=== PATIENT | female | born 1940 | race Caucasian/White ===

== ENCOUNTER 2025-05-14 19:02 | Inpatient (IN) | payer MEDICARE, BC ==
[~2025-05-14] VITALS: Ht 167.6 cm; Wt 70.8 kg
[2025-05-14 20:00] VITALS: BP 124/80; TEMP 98.4; O2SAT 96
[2025-05-14] MEDS ORDERED: Z GUARD REMEDY 4 OZ OINT TP PRN (21:00)
[2025-05-14] MEDS ORDERED: MAG HYDROX/AL HYDROX/SIMETH 30 ML UDC PO PRN (21:00)
[2025-05-14] MEDS ORDERED: ONDANSETRON HCL/PF 4 MG/2 ML VIAL IVP PRN (21:00)
[2025-05-14] MEDS ORDERED: ACETAMINOPHEN 325 MG TABLET PO PRN (21:00)
[2025-05-14] MEDS ORDERED: ZOLPIDEM TARTRATE 5 MG TABLET PO PRN (21:00)
[2025-05-14] MEDS: IV D5/0.45 NACL 1,000 ML IV PRN (22:19)
[2025-05-15] VITALS (33 sets, daily range): BP systolic 85–125; BP diastolic 52–95; TEMP 95.9–98; O2SAT 97–100
[2025-05-15 07:01] LABS: INR 1.03 (0.91-1.10)
[2025-05-15] MEDS ORDERED: HEMOSTATIC MATRIX 8 ML 1 EACH PAD MC ONE (07:02)
[2025-05-15] MEDS ORDERED: CEFAZOLIN 1 GM ONE (07:02)
[2025-05-15] MEDS ORDERED: ANESTHESIA TRAY IN PYXIS 1 EA TRAY MC ONE (07:02)
[2025-05-15] MEDS ORDERED: LIDOCAINE 0.5%-EPI 1:200,000 50 ML VIAL ONE (07:02)
[2025-05-15 07:03] LABS: PLATELET COUNT (AUTO) 355 K/uL (150-450); RED BLOOD CELL COUNT(AUTO) 3.49 MIL/uL (4.0-5.2); RED CELL DISTRIBUTION WIDTH 14.2 % (11.5-15.0); WHITE BLOOD COUNT (AUTO) 6.7 K/uL (4.3-11.0)
[2025-05-15] MEDS ORDERED: ROCURONIUM BROMIDE 50 MG/5 ML ONE (07:07)
[2025-05-15] MEDS ORDERED: FENTANYL PF 250MCG/5ML AMPUL ONE (07:07)
[2025-05-15 07:09] LABS: CALCIUM, SERUM 6.7 mg/dL (8.5-10.1); CREATININE 0.6 mg/dL (0.6-1.3); PHOSPHORUS 1.5 mg/dL (2.5-4.9); SODIUM SERUM 139.0 mmol/L (136-145); UREA NITROGEN, BLOOD 7.0 mg/dL (7-18)
[2025-05-15 07:25] LABS: APPEARANCE,URINE CLEAR (CLEAR); BLOOD, URINE TRACE-INTA Ery/uL (NEGATIVE); LEUKOCYTE ESTERASE ,URINE NEGATIVE (NEGATIVE); NITRITE, URINE NEGATIVE (NEGATIVE); UGLUCOSE NEGATIVE (NEGATIVE)
[2025-05-15] MEDS: POTASSIUM CL. PREMIX PERIPHER. 50 ML IV SCH (07:30)
[2025-05-15 07:43] LABS: ADD URINE CULTURE NO; SQUAMOUS EPITHELIAL CELL,UR 0-2 /HPF (None Seen)
[2025-05-15] MEDS: PANTOPRAZOLE 40 MG VIAL IV SCH (09:00)
[2025-05-15] MEDS ORDERED: KETOROLAC TROMETHAMINE INJ 60 MG/2 ML VIAL IM ONE (09:36)
[2025-05-15] MEDS ORDERED: TRIAMCINOLONE ACETONIDE SUSP 40 MG/ML 1 ML ONE (09:37)
[2025-05-15] MEDS ORDERED: FENTANYL PF 100MCG/2ML AMPUL ONE (10:22)
[2025-05-15] MEDS: FENTANYL PF 100MCG/2ML AMPUL IV PRN (10:24)
[2025-05-15 11:17] LABS: ABG BASE EXCESS -10.2 mmol/L (-2.0-3.0); ABG OXYGEN SATURATION 91.7 % (94.0-98.0); ABG PCO2 139.3 mmHg (32.0-45.0); ABG PH 6.892 (7.350-7.450); ABG PO2 93.9 mmHg (83.0-108.0); ABG TOTAL HEMOGLOBIN 13.9 G/dL (12.0-16.0); FLOW, BLOOD GAS 10.00 L/min (0.00-30.00); FRACTIONATED INSPIRED OXYGEN 60.0 %; SITE, ABG LEFT RADIAL
[2025-05-15] MEDS: Magnesium 1GM/D5W 100ML PREMIX 100 ML IV SCH (12:06)
[2025-05-15] MEDS: PROPOFOL 100 ML IV PRN (12:13)
[2025-05-15] MEDS ORDERED: ATOR20TA PO (13:55)
[2025-05-15] MEDS ORDERED: AMLO-213 PO (13:55)
[2025-05-15] MEDS ORDERED: ESCI10TA PO (13:55)
[2025-05-15] MEDS ORDERED: LEVO75TA7 PO (13:55)
[2025-05-15 17:20] LABS: CALCIUM, SERUM 6.9 mg/dL (8.5-10.1); CREATININE 0.7 mg/dL (0.6-1.3); SODIUM SERUM 136.0 mmol/L (136-145); UREA NITROGEN, BLOOD 8.0 mg/dL (7-18)
[2025-05-16] VITALS (26 sets, daily range): BP systolic 96–117; BP diastolic 55–77; TEMP 97.5–98.4; O2SAT 93–100
[2025-05-16] MEDS: MORPHINE SULFATE INJ 4 MG/ML DISP.SYRIN IV PRN (01:27)
[2025-05-16 05:22] LABS: CALCIUM, SERUM 6.5 mg/dL (8.5-10.1); CREATININE 0.8 mg/dL (0.6-1.3); PHOSPHORUS 1.9 mg/dL (2.5-4.9); SODIUM SERUM 135.0 mmol/L (136-145); UREA NITROGEN, BLOOD 8.0 mg/dL (7-18)
[2025-05-16] MEDS: HYDROCODONE/APAP 5/325MG TABLET PO PRN (14:40)
[2025-05-16] MEDS: NEUTRA PHOS 1 POWD.PACKET PO ONE (16:44)
[2025-05-16] MEDS: ATORVASTATIN 10 MG TABLET PO SCH (21:02)
[2025-05-17] VITALS: BP 119/62; TEMP 97.9; O2SAT 98
[2025-05-17 04:00] VITALS: BP 113/55; TEMP 98.1; O2SAT 96
[2025-05-17 07:16] LABS: PLATELET COUNT (AUTO) 354 K/uL (150-450); RED BLOOD CELL COUNT(AUTO) 3.43 MIL/uL (4.0-5.2); RED CELL DISTRIBUTION WIDTH 14.5 % (11.5-15.0); WHITE BLOOD COUNT (AUTO) 8.6 K/uL (4.3-11.0)
[2025-05-17 08:00] VITALS: BP 126/62; TEMP 97.5; O2SAT 99
[2025-05-17 08:16] LABS: CALCIUM, SERUM 6.9 mg/dL (8.5-10.1); CREATININE 0.6 mg/dL (0.6-1.3); PHOSPHORUS 1.8 mg/dL (2.5-4.9); SODIUM SERUM 138.0 mmol/L (136-145); UREA NITROGEN, BLOOD 7.0 mg/dL (7-18)
[2025-05-17] MEDS: LEVOTHYROXINE SODIUM 75 MCG TABLET PO SCH (08:26)
[2025-05-17] MEDS: AMLODIPINE BESYLATE 10 MG TABLET PO SCH (08:26)
[2025-05-17] MEDS: ESCITALOPRAM OXALATE (10 MG) 10 MG TABLET PO SCH (08:26)
[2025-05-17 12:00] VITALS: BP 102/52; TEMP 97.9; O2SAT 96; O2SAT 98
[2025-05-17 16:00] VITALS: BP 113/59; TEMP 97.9; O2SAT 94
[2025-05-17] MEDS: K PHOS NEUTRAL 250 MG TABLET PO ONE (16:07)
[2025-05-17] MEDS: DOCUSATE SODIUM 100 MG CAPSULE PO SCH (16:07)
[2025-05-17] MEDS: MAGNESIUM HYDROXIDE 30 ML UDC PO PRN (16:07)
[2025-05-17] MEDS: ENSURE ENLIVE CHOC 237 ML CAN PO SCH (18:00)
[2025-05-17 20:00] VITALS: BP 118/58; TEMP 97.7; O2SAT 99
[2025-05-18] VITALS: BP 111/67; TEMP 97.2; O2SAT 99
[2025-05-18 04:00] VITALS: BP 126/60; TEMP 97.5; O2SAT 99
[2025-05-18 07:29] LABS: CALCIUM, SERUM 6.7 mg/dL (8.5-10.1); CREATININE 0.6 mg/dL (0.6-1.3); SODIUM SERUM 137.0 mmol/L (136-145); UREA NITROGEN, BLOOD 6.0 mg/dL (7-18)
[2025-05-18 08:00] VITALS: BP 134/59; TEMP 97.9; O2SAT 99
[2025-05-18] MEDS: PANTOPRAZOLE 40 MG/PACK PACK PO SCH (08:55)
[2025-05-18] MEDS: MAGNESIUM OXIDE 400 MG TABLET PO ONE (09:44)
[2025-05-18] MEDS: POTASSIUM CHLORIDE 20 MEQ POWDER PACKET PO ONE (09:48)
[2025-05-18] MEDS: MINERAL OIL 133 ML (PYXIS) 1 EA ENEMA RC ONE (11:28)
[2025-05-18 12:00] VITALS: BP 123/96; TEMP 97.8; O2SAT 100
[2025-05-18 16:00] VITALS: BP 116/68; TEMP 98.4; O2SAT 98
== END 2025-05-18 17:24 | DRG 518 ==
LOC: MED 20:40 → ICU 05-15 11:19 → TELE1 05-16 10:39
PROVIDERS: ADMIT Student in an Organized Health Care Education/Training Program
PROC: 01NB0ZZ Release Lumbar Nerve, Open Approach (ICD-10-PCS; 2025-05-15)
PROC: 0BH18EZ Insertion of Endotracheal Airway into Trachea, Via Natural or Artificial Opening Endoscopic (ICD-10-PCS; 2025-05-15)
PROC: 5A1935Z Respiratory Ventilation, Less than 24 Consecutive Hours (ICD-10-PCS; 2025-05-15)
PROC: 00NY0ZZ Release Lumbar Spinal Cord, Open Approach (ICD-10-PCS; principal; 2025-05-15 07:30)
DX: M48.061 Spinal stenosis, lumbar region without neurogenic claudication (principal); J96.01 Acute respiratory failure with hypoxia; J96.02 Acute respiratory failure with hypercapnia; G95.29 Other cord compression; E46 Unspecified protein-calorie malnutrition; G83.4 Cauda equina syndrome; N39.0 Urinary tract infection, site not specified; E87.29 Other acidosis; E88.09 Other disorders of plasma-protein metabolism, not elsewhere classified; R53.1 Weakness; E03.9 Hypothyroidism, unspecified; E21.3 Hyperparathyroidism, unspecified; E78.5 Hyperlipidemia, unspecified; E83.42 Hypomagnesemia; K59.09 Other constipation; Z87.440 Personal history of urinary (tract) infections; E87.6 Hypokalemia; E83.39 Other disorders of phosphorus metabolism; F32.A Depression, unspecified; K80.20 Calculus of gallbladder without cholecystitis without obstruction; I10 Essential (primary) hypertension; D25.9 Leiomyoma of uterus, unspecified; R33.9 Retention of urine, unspecified; R91.1 Solitary pulmonary nodule; G47.33 Obstructive sleep apnea (adult) (pediatric); Z91.81 History of falling; Z68.25 Body mass index [BMI] 25.0-25.9, adult
CPT/HCPCS: 36415; 71045-TC; 72100-TC; 80048-TC; 81001; 83735-TC; 84100-TC; 84478-TC; 84484-TC; 85025-TC; 85610-TC; 86850-TC; 87081-TC; 92526; 92611; 94002-TC; 94799-TC; 97110-TC; 97112-TC; 97530-TC; 97535-TC; 99082-TC; A4223; G0378; J0330; J0461; J0690; J1885; J2270; J2470; J2704; J3010; J3475; J3480; J3490; J7030; J7050